=== PATIENT | male | born 1985 | race Caucasian/White ===

== ENCOUNTER 2017-03-28 16:18 | Emergency (ER) | payer SELFPAY ==
[~2017-03-28 16:18] MED LIST: AURALGAN OTIC S14 ML AD; BENTYL20 MG PO; CELEXA PO; CELEXA20 MG PO; CIPRO PO; DARVOCET-N 1001 TAB PO; DESYREL50 MG PO; DICLOFENAC SODI50 MG PO; FLAGYL PO; FLEXERIL PO; MEDROL DOSEPAK4 MG PO; MOBIC PO; NO MEDICATIONS; PEN-VEE K PO; PHENERGAN12.5 M1 PR; ROBAXIN 750750 M1 PO; TRAZODONE PO; ULTRAM PO; VOLTAREN75 MG PO; ZITHROMAX PO; ZOFRAN ODT4 MG PO
[2017-03-28] MEDS ORDERED: VOLTAREN75 MG PO (16:51)
[2017-03-28] MEDS ORDERED: CLEOCIN PO (16:51)
== END 2017-03-28 16:59 | disposition home or self-care (01) ==
LOC: SED 16:18
DX: K04.7 Periapical abscess without sinus (principal); F17.210 Nicotine dependence, cigarettes, uncomplicated
CPT/HCPCS: 99283